=== PATIENT | female | born 1925 | race Caucasian/White ===

== ENCOUNTER → 2016-12-12 | Outpatient (CLI) | payer MEDICARE ==
[~2016-12-12] MED LIST: ACETAMINOPHEN325 MG PO; ALBUTEROL MININEB NEB; ALPHAGAN P10 ML OU; ARCAPTA NEOHAL75 MCG INH; ARTIFICIAL TEAR1 DRP OP; ASCORBIC ACID500 MG PO; ASPIRIN PO; ASPIRIN81 M1 PO; B12 HEALTH1000 MCG/1 PO; BENAZEPRIL HCL40 MG PO; BENAZEPRIL-HCTZ1 T14 PO; BENZONATATE PO; BISACODYL10 MG/SUP3 RC; CALTRATE PLUS T1 TAB PO; CANASA1000 MG/S1 RC; CENTRUM SILVER PO; COLACE PO; COMBIVENT INH14.7 G1 IH; COMBIVENT14.7 GM INH; DULERA 200 MCG/13 GM INH; DUONEB 2.5-0.5 M3 ML NEB; FERRO-TIME325 MG PO; FERROUS SULFATE1 TAB PO; FLEET ENEMA133 M1 PR; FUROSEMIDE40 MG PO; GAS-X80 MG PO; K-DUR20 ME1 DOB; K-DUR20 ME1 PO; K-DUR20 ME2 PO; KCL PO; LASIX PO; LASIX20 MG PO; LEVAQUIN PO; LOTENSIN HCT 101 TAB PO; LOTENSIN40 MG PO; MAG-OXIDE400 MG PO; MEDROL DOSEPAK4 MG; MEDROL4 MG/DOSE- PO; METOPROLOL TAR25 MG DOB; METOPROLOL TAR25 MG PO; METOPROLOL TART25 MG PO; MILK OF MAGNESIA PO; MIRALAX17 GM PO; MULTI VITAMINS W1 MG PO; MULTI-VITAMIN1 EAC1 PO; PERCOCET 5-3251 TAB PO; PRAVACHOL PO; PRAVACHOL20 MG PO; PRAVASTATIN SOD40 MG PO; PREDNISONE PO; PREDNISONE10 MG PO; PROTONIX PO; PROTONIX20 MG PO; SPIRIVA18 MCG INH; SYMBICORT INH; V C FORTE PO; VITAMIN B12; VITAMIN B12 PO; VITAMIN C; VITAMIN C PO; VITAMIN C500 M1 PO; VITAMIN D1000 UNI1 PO; VITAMIN D32000 UNIT PO; ZITHROMAX PO; ZOLOFT PO; ZOLOFT50 MG PO; [UNRECOGNIZED DRUG - OTHER] PO
--- NOTE | ~2016-12-12 | MR83 ---
[facility] A Service of [facility] & [facility] RADIOLOGY TEXT RESULTS PATIENT: WAYNE JULES LOCATION: [facility] : [birth year] UNIT #: [id number] AGE: [address]: Basim Krause MD SEX: F ORDER DR: [id number] [facility] [address] [place], [place] [address] [id number] O MR#: [id number] Acc #: [id number] NAME: WAYNE JULES. : 1925 SEX: F STUDY DATE/TIME: 12/12/2016 10:19 UNIT: [facility] ROOM: STUDY DESCRIPTION: MR Hip Wo Contrast Lt Attending Physician: Basim Krause M.D. Referring Physician: Basim Krause M.D. Ordering Physician: Basim Krause M.D. Primary Care Physician: Basim Krause M.D. MRI CENTER REPORT This report is preliminary unless electronic signature is present. EXAM MRI pelvis and hips without contrast 12/12/2016. COMPARISON Left hip radiographs 04/27/[address] abdomen pelvis 05/08/2012. HISTORY Order states left hip pain. History sheet states no falls or trauma. No history of cancer. No left hip surgery. Pain in left hip for 2 weeks. FINDINGS The hips show no effusion, fracture, osteonecrosis, or definite arthropathic change. The remainder of the bony pelvis, sacrum, and SI joints are within normal limits. The gluteal tendons are intact. Greater trochanteric and ischial tuberosity bursal regions are within normal limits. There is a paucity of body fat suspected. No internal pelvic pathology is seen. 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 The uterus appears to be present. IMPRESSION 1. No pelvic or hip musculoskeletal pathology is noted. 2. No definite internal pelvic pathology. Bowel gas is somewhat prominent but nonspecific. 3. No fracture. Dictated by... Chantelle Mortensen M.D. THIS IS AN ELECTRONICALLY VERIFIED REPORT Chantelle Mortensen M.D. at 12/13/2016 11:08 AM [facility]. [facility] A Service of [facility] & [facility] RADIOLOGY TEXT RESULTS PATIENT: WAYNE JULES LOCATION: [facility] : [birth year] UNIT #: [id number] AGE: [address]: Basim Krause MD SEX: F ORDER DR: TD: 12/12/2016 17:19 JOB #: [id number] MRI CENTER REPORT Page 1 of 1 COPY
== END | disposition home or self-care (01) ==
LOC: CMRI 09:40
DX: M25.551 Pain in right hip (principal)
CPT/HCPCS: 73721